=== PATIENT | male | born 1975 | race Caucasian/White ===

== ENCOUNTER 2017-04-11 13:59 | Emergency (ER) | payer OTHER ==
[2017-04-11] MEDS ORDERED: Ketorolac 30 MG/ML SDV IVPUSH ONE (14:28)
[2017-04-11] MEDS ORDERED: diphenhydrAMINE 50 MG/ML SDV IVPUSH ONE (14:28)
[2017-04-11] MEDS ORDERED: Prochlorperazine 10 MG in Sodium Chloride 0.9% 50 ML IV ONE (14:28)
[2017-04-11] MEDS ORDERED: Sodium Chloride 0.9% 1,000 ML IV ONE (14:28)
--- NOTE | 2017-04-11 14:29 | EDM.PDOC ---
ED HPI GENERAL MEDICAL PROBLEM - General Chief Complaint: Headache Stated Complaint: MIGRAINE Time Seen by Provider: 04/11/17 14:15 Source of Information: Reports: Patient History Limitations: Reports: No Limitations - History of Present Illness INITIAL COMMENTS - FREE TEXT/NARRATIVE: The patient is a 41-year-old male with a chief complaint of headache. He has a history of migraine headaches. States that he woke up this morning with a typical migraine. Describes it is severe pain that wraps around his forehead. No provoking factor. He has photophobia. He's also had nausea and several episodes of vomiting. Usually his headaches get better after he vomits and goes to sleep but today the headache is been more persistent. It is otherwise very similar to his usual headaches. No fever or recent illness. Headache is currently severe. The patient took ibuprofen at around 6 AM, has not taken any other medications. No weakness or confusion. No abdominal pain. Headache Pain Score (Numeric/FACES): 7 - Related Data Allergies Allergy/AdvReac Type Severity Reaction Status Date / Time No Known Allergies Allergy Verified 04/11/17 14:10 Home Meds: Home Meds . [No Known Home Meds] 01/23/14 [History] Past Medical History - Past Health History Medical/Surgical History: Denies Medical/Surgical History Gastrointestinal History: Reports: GERD Neurological History: Reports: Migraines Social & Family History - Tobacco Use Smoking Status *Q: Never Smoker - Alcohol Use Days Per Week of Alcohol Use: 1 Number of Drinks Per Day: 2 Total Drinks Per Week: 2 - Recreational Drug Use Recreational Drug Use: No ED ROS GENERAL - Review of Systems Review Of Systems: See Below Constitutional: Denies: Fever HEENT: Denies: Vision Change Respiratory: Denies: Cough Cardiovascular: Reports: No Symptoms Endocrine: Reports: No Symptoms GI/Abdominal: Reports: Nausea, Vomiting. Denies: Abdominal Pain Neurological: Reports: Headache - Physical Exam Exam: See Below Exam Limited By: No Limitations General Appearance: Alert, Moderate Distress Ears: Normal External Exam Nose: Normal Inspection Throat/Mouth: Normal Inspection, Normal Voice, No Airway Compromise Head Exam: Atraumatic, Normocephalic Neck: Normal Inspection, Supple, Non-Tender, Full Range of Motion Respiratory/Chest: No Respiratory Distress, Lungs Clear, Normal Breath Sounds, Chest Non-Tender Cardiovascular: Normal Peripheral Pulses, Regular Rate, Rhythm, No Murmur GI/Abdominal: Soft, Non-Tender, No Distention. No: Rebound Neuro Exam (Abbreviated): Alert, Oriented, CN II-XII Intact, Normal Cognition, No Motor/Sensory Deficits Extremities: Normal Inspection Psychiatric: Normal Affect, Normal Mood Skin Exam: Warm, Dry, Intact, Normal Color Course - Vital Signs Last Recorded V/S: Last Vital Signs Temp 36.4 C 04/11/17 14:11 Pulse 84 04/11/17 14:11 Resp BP 131/92 H 04/11/17 14:11 Pulse Ox 98 04/11/17 14:11 - Orders/Labs/Meds Meds: Medications Discontinued Medications Generic Name Dose Route Start Last Admin Trade Name Freq PRN Reason Stop Dose Admin Diphenhydramine HCl 25 mg 04/11/17 14:28 04/11/17 14:40 Benadryl IVPUSH 04/11/17 14:29 25 mg ONETIME ONE Administration Sodium Chloride 1,000 mls @ 1,000 mls/hr 04/11/17 14:28 04/11/17 14:43 Normal Saline IV 04/11/17 15:27 1,000 mls/hr ONETIME ONE Administration Prochlorperazine Edisylate 10 52 mls @ 150 mls/hr 04/11/17 14:28 04/11/17 14: 45 mg/ Sodium Chloride IV 04/11/17 14:48 150 mls/hr ONETIME ONE Administration Ketorolac Tromethamine 30 mg 04/11/17 14:28 04/11/17 14:40 Toradol IVPUSH 04/11/17 14:29 30 mg ONETIME ONE Administration - Re-Assessments/Exams Free Text/Narrative Re-Assessment/Exam: 04/11/17 16:06 Feeling much better after compazine/benadryl/toradol, headache nearly resolved. Wants to go home. Discussed return precautions. Departure - Departure Time of Disposition: 16:07 Disposition: Home, Self-Care 01 Clinical Impression: Migraine Qualifiers: Migraine type: without aura Status migrainosus presence: without status migrainosus Intractability: not intractable Qualified Code(s): G43.009 - Migraine without aura, not intractable, without status migrainosus - Discharge Information Referrals: Perfecto Calabrese MD [Primary Care Provider] - Forms: ED Department Discharge Additional Instructions: 1. Follow up with your primary care physician as needed for further care 2. Return to the Emergency Department if you have any worsening or concerning symptoms, such as severe headache, vomiting without keeping liquids down, or any other concerning symptoms
== END 2017-04-11 16:24 | disposition home or self-care (01) ==
LOC: JD.ED 13:59
DX: G43.009 Migraine without aura, not intractable, without status migrainosus (principal)
CPT/HCPCS: 96361; 96365; 96375; 99283; J0780; J1200; J1885; J7040; J7050; 99284

== ENCOUNTER 2017-05-06 18:22 | Emergency (ER) | payer OTHER ==
[2017-05-06] MEDS ORDERED: HYDROmorphone 0.5 MG/0.5 ML Syringe IVPUSH ONE (20:48)
[2017-05-06] MEDS ORDERED: Sodium Chloride 0.9% 1,000 ML IV ONE (20:50)
--- NOTE | 2017-05-06 21:10 | EDM.PDOC ---
ED HPI GENERAL MEDICAL PROBLEM - General Chief Complaint: Genitourinary Problem Stated Complaint: GROIN PAIN Time Seen by Provider: 05/06/17 19:40 Source of Information: Reports: Patient History Limitations: Reports: No Limitations - History of Present Illness INITIAL COMMENTS - FREE TEXT/NARRATIVE: Patient is a 41-year-old male who presents to the ED complaining of right testicular/growin pain. Patient states last week the pain was on and off for about a week but has progressively gotten worse over the course of the last few days. Today the pain is constant worse with palpation and also movement of his right leg. There is tenderness noted to the right testicle, groin, and right inner thigh. No swelling, bruising, redness, recent trauma, or other known precipitating factors. States the pain is described as being sharp constant with at rest rated 3 out of 10. With movement or with palpation increases to 8 out of 10. He has not taken any anti-inflammatories. He has no pain with urination and denies any abnormal penile discharge. Denies any sensation of incomplete bladder emptying or increased frequency noted. No prostate issues in the past. He is sexually active in a monogamous relation with his . He denies ever having any sexual transmitted diseases. He has no past medical history and currently taking no medications. Denies any surgical history. Of note patient states he also felt warm today and had some episodes of sweating. He's had a few days of loose stools but denies it being diarrhea. There is no blood present. No nausea or vomiting. No abdominal pain. Right Groin Pain Score (Numeric/FACES): 5 - Related Data Allergies Allergy/AdvReac Type Severity Reaction Status Date / Time No Known Allergies Allergy Verified 05/10/17 10:06 Home Meds: Home Meds . [No Known Home Meds] 01/23/14 [History] Past Medical History - Past Health History Medical/Surgical History: Denies Medical/Surgical History Gastrointestinal History: Reports: GERD Neurological History: Reports: Migraines Social & Family History - Tobacco Use Smoking Status *Q: Never Smoker - Alcohol Use Days Per Week of Alcohol Use: 1 Number of Drinks Per Day: 2 Total Drinks Per Week: 2 - Recreational Drug Use Recreational Drug Use: No ED ROS GENERAL - Review of Systems Review Of Systems: ROS reveals no pertinent complaints other than HPI. ED EXAM, RENAL/ - Physical Exam Exam: See Below Exam Limited By: No Limitations General Appearance: Alert, WD/WN, Mild Distress Ears: Hearing Grossly Normal Nose: Normal Inspection Throat/Mouth: Normal Voice, No Airway Compromise Neck: Normal Inspection, Supple Respiratory/Chest: No Respiratory Distress, Lungs Clear, Normal Breath Sounds, No Accessory Muscle Use, Chest Non-Tender Cardiovascular: Normal Peripheral Pulses, Regular Rate, Rhythm GI/Abdominal: Normal Bowel Sounds, Soft, Non-Tender, No Organomegaly, No Distention (Male) Exam: No Hernia, Normal Inspection, Circumcised, Cremasteric Reflex, Scrotum Tenderness (R), Testicular Tenderness (R). No: Hernia, Inguinal Lymphadenopathy, Penile Lesions, Rash, Scrotal Swelling, Scrotum Tenderness (L) , Testicular Mass, Urethral Discharge Rectal (Males) Exam: Deferred Back Exam: Normal Inspection. No: CVA Tenderness (L), CVA Tenderness (R) Extremities: Normal Inspection Neurological: Alert, Oriented, CN II-XII Intact, Normal Cognition, No Motor/ Sensory Deficits Psychiatric: Normal Affect, Normal Mood Skin Exam: Warm, Dry, Intact, Normal Color Course - Vital Signs Last Recorded V/S: Last Vital Signs Temp 97.2 F 05/06/17 19:04 Pulse 93 05/06/17 19:04 Resp BP 131/107 H 05/06/17 19:04 Pulse Ox 98 05/06/17 19:04 - Orders/Labs/Meds Labs: Laboratory Tests 05/06/17 05/06/17 05/06/17 Range/Units 21:44 21:44 22:05 WBC 9.45 H (4.23-9.07) K/mm3 RBC 5.35 (4.63-6.08) M/mm3 Hgb 15.4 (13.7-17.5) gm/L Hct 43.8 (40.1-51.0) % MCV 81.9 (79.0-92.2) fl MCH 28.8 (25.7-32.2) pg MCHC 35.2 (32.2-35.5) g/dl RDW Std Deviation 38.8 (35.1-43.9) fL Plt Count 189 (163-337) K/mm3 MPV 10.4 (9.4-12.3) fl Neut % (Auto) 61.9 (34.0-67.9) % Lymph % (Auto) 27.3 (21.8-53.1) % [place] % (Auto) 9.7 (5.3-12.2) % Eos % (Auto) 0.6 L (0.8-7.0) Baso % (Auto) 0.3 (0.1-1.2) % Neut # (Auto) 5.84 H (1.78-5.38) K/mm3 Lymph # (Auto) 2.58 (1.32-3.57) K/mm3 [place] # (Auto) 0.92 H (0.30-0.82) K/mm3 Eos # (Auto) 0.06 (0.04-0.54) K/mm3 Baso # (Auto) 0.03 (0.01-0.08) K/mm3 Sodium 140 (136-145) mEq/L Potassium 3.8 (3.5-5.1) mEq/L Chloride 104 (98-107) mEq/L Carbon Dioxide 24 (21-32) mEq/L Anion Gap 15.8 H (5-15) BUN 12 (7-18) mg/dL Creatinine 0.8 (0.7-1.3) mg/dL Est Cr Clr Drug Dosing 125.47 mL/min Estimated GFR (MDRD) > 60 (>60) mL/min BUN/Creatinine Ratio 15.0 (14-18) Glucose 100 (74-106) mg/dL Calcium 9.2 (8.5-10.1) mg/dL Total Bilirubin 0.6 (0.2-1.0) mg/dL AST 25 (15-37) U/L ALT 50 (16-63) U/L Alkaline Phosphatase 42 L (46-116) U/L C-Reactive Protein < 0.2 (<1.0) mg/dL Total Protein 7.4 (6.4-8.2) g/dl Albumin 4.0 (3.4-5.0) g/dl Globulin 3.4 gm/dL Albumin/Globulin Ratio 1.2 (1-2) Urine Color Yellow (Yellow) Urine Appearance Clear (Clear) Urine pH 7.0 (5.0-8.0) Ur Specific [place] 1.015 (1.005-1.030) Urine Protein Negative (Negative) Urine Glucose (UA) Negative (Negative) Urine Ketones Trace H (Negative) Urine Occult Blood Negative (Negative) Urine Nitrite Negative (Negative) Urine Bilirubin Negative (Negative) Urine Urobilinogen 0.2 (0.2-1.0) Ur Leukocyte Esterase Negative (Negative) Urine RBC 0-5 (0-5) /hpf Urine WBC 0-5 (0-5) /hpf Ur Epithelial Cells 0-5 (0-5) /hpf Urine Bacteria Rare (FEW) /hpf Urine Mucus Not seen (FEW) /hpf Meds: Medications Discontinued Medications Generic Name Dose Route Start Last Admin Trade Name Freq PRN Reason Stop Dose Admin Hydromorphone HCl 0.5 mg 05/06/17 20:48 05/07/17 00:25 Dilaudid IVPUSH 05/06/17 20:49 Not Given ONETIME ONE Sodium Chloride 1,000 mls @ 999 mls/hr 05/06/17 20:50 05/06/17 21:43 Normal Saline IV 05/06/17 21:50 999 mls/hr ONETIME ONE Administration Iopamidol 125 ml 05/06/17 23:06 05/06/17 23:39 Isovue-300 (61%) IVPUSH 05/06/17 23:07 125 ml ONETIME ONE Administration Ketorolac Tromethamine 30 mg 05/06/17 22:51 05/06/17 23:14 Toradol IVPUSH 05/06/17 22:52 30 mg ONETIME ONE Administration Sodium Chloride 10 ml 05/06/17 20:48 05/06/17 23:39 Saline Flush FLUSH 10 ml ASDIRECTED PRN Administration Keep Vein Open - Re-Assessments/Exams Free Text/Narrative Re-Assessment/Exam: Delay in evaluating patient with arranging hospital admission and transportation for multiple patients. Due to pain to the testicle ordered ultrasound. US scrotum obtained. Impression: No intra-testicular mass. No evidence of torsion. No evidence of orchitis. Likely complex bilateral hydroceles. Blood work along with UA obtained. IV established with dilaudid 0.5mg IVP and NS 999 mls/hr. 05/06/17 22:54 Reviewed labs with patient. Reassessed inguinal region. Few lymph nodes present. Discussed in great deal anatomy of the inguinal region and the different types of hernias. Offered to obtain CT of the abdomen and pelvis to the which the patient has elected to have obtained this evening. CT of the abdomen and pelvis with oral and IV contrast ordered. For pain ordered toradol 30 mg IVP. 05/07/17 00:23 CT abdomen and pelvis with IV contrast impression: Circumferential mucosal thickening of the bladder, although this may be related to under distention correlate with any symptoms of cystitis. Normal appendix. Areas of decreased attenuation in the right hepatic lobe, findings likely consistent with hemangiomas. However this could be confirmed with dedicated hepatic imaging at the discretion of on-site radiologist. Enhancing 1 cm lesion in the spleen, likely represents a hemangioma. Will discharge patient home with instructions as documented. Departure - Departure Time of Disposition: 00:25 Disposition: Home, Self-Care 01 Condition: Good Clinical Impression: Rt inguinal pain, Testicular pain, right, Hydrocele in adult - Discharge Information Instructions: Hydrocele, Adult Referrals: Perfecto Calabrese MD [Primary Care Provider] - Forms: ED Department Discharge Additional Instructions: As discussed unclear etiology of current complaints. Most likely musculoskeletal in nature with no significant findings on CT study of abdomen and pelvis. Thus treatment will be refraining from any activities that cause worsening pain. Can take Tylenol 650 mg every 6 hours and ibuprofen 600 mg every 6 hours as needed in alternating fashion for pain. Follow-up with your PCP for further evaluation and discuss further testing to determine if hemangioma is present to the liver and or spleen. Return to ED for any new or worsening symptoms.
[2017-05-06] MEDS: Sodium Chloride 0.9% 10 ML Syringe FLUSH PRN ×2 (21:43→23:39)
[2017-05-06] MEDS ORDERED: Ketorolac 30 MG/ML SDV IVPUSH ONE (22:51)
[2017-05-06] MEDS ORDERED: Iopamidol 612 MG/ML 150 ML Bottle IVPUSH ONE (23:06)
--- NOTE | 2017-05-07 07:18 | US ---
Testicular ultrasound: Multiple real-time images of the testicles were obtained. Testicles have a homogeneous ultrasound appearance. Arterial and venous blood flow is seen within both testicles. Small left epididymal cyst is seen measuring 8 mm. Small amount of fluid is seen around both testicles/epididymis. Measurements: Right testicle: 4.4 x 2.6 x 2.8 cm Left testicle: 4.1 x 1.9 x 3.2 cm Impression: 1. Incidental findings as noted above. Diagnostic code #2 I agree with preliminary report issued by [facility] ([facility] preliminary report dictated on 05/06/17, 10:01 PM Central Time)
--- NOTE | 2017-05-07 08:12 | CT ---
CT abdomen and pelvis Technique: Multiple axial sections were obtained from slightly below the dome of the diaphragm inferiorly through the pubic symphysis. Intravenous contrast was utilized. No oral contrast has been given. Delayed images were also obtained through the abdomen and pelvis. Comparison: No prior abdominal imaging. Findings: Small portion of the visualized lung bases shows nothing acute. Three low density lesions are identified within the right lobe of the liver. Largest abnormality measures approximately 5.1 cm in size. No additional abnormality is definitely appreciated within the liver. Spleen size is normal. Spleen shows a small hyperenhancing lesion measuring 1.2 cm which is felt to be incidental. Adrenal glands show no nodule. Pancreas appears within normal limits. Kidneys show symmetric contrast enhancement. Delayed images show no filling defects within the opacified collecting systems of the kidneys. Ureters are seen which appear within normal limits. Contrast noted within the bladder. Bladder wall appears slightly thickened most likely representing lack of distention. Aorta shows no aneurysmal dilatation. Gallbladder contains no calcified gallstones. No retroperitoneal adenopathy or mesenteric abnormalities are seen. No pelvic mass or adenopathy is identified. Appendix is seen which is normal. Bone window settings were reviewed which appear within normal limits for the patient's age with minimal scattered degenerative change and incidental Schmorl's node deformities. Impression: 1. Bladder wall thickening most likely relating to lack of bladder distention. 2. Three low-density lesions within the liver. These could possibly represent hemangiomas although other etiology is difficult to exclude at this time. Recommend nuclear medicine RBC SPECT study to rule in or rule out hemangiomas. 3. Small spleen abnormality believed to be incidental. No additional abnormality is seen. Diagnostic code #9 I agree with preliminary report issued by [facility] ([facility] preliminary report dictated on 05/07/17, 1:19 AM Central Time)
== END 2017-05-07 00:41 | disposition home or self-care (01) ==
LOC: JD.ED 18:22
DX: N43.3 Hydrocele, unspecified (principal)
CPT/HCPCS: 36415; 74177; 76870; 80053; 81001; 85025; 86140; 93975; 96361; 96374; 99284; J1885; J7040; J7050; Q9967

== ENCOUNTER 2017-05-10 09:18 | Day surgery (SDC) | payer OTHER ==
[~2017-05-10 09:18] MED LIST: Lidocaine 1% 4 ML ONE; Lidocaine 1%/Sod Bicarbonate in NS 8.4% 1 ML Syringe IV PRN; Midazolam 1 MG/ML 2 ML SDV ONE; Ondansetron 4 MG/2 ML SDV ONE; Propofol 200 MG/20 ML SDV ONE; Sodium Chloride 0.9% 10 ML Syringe FLUSH PRN; fentaNYL 250 MCG/5 ML SDV ONE
[2017-05-10] MEDS: Lactated Ringers 1,000 ML IV SCH ×2 (09:45→12:30)
--- NOTE | 2017-05-10 09:46 | PCM.PREANE ---
Preanesthetic Assessment - Anesthesia/Transfusion/Family Hx Anesthesia History: No Prior Anesthesia Family History of Anesthesia Reaction: No Transfusion History: No Prior Transfusion(s) - Review of Systems General: No Symptoms Pulmonary: No Symptoms Cardiovascular: No Symptoms Gastrointestinal: No Symptoms Neurological: No Symptoms Other: Reports: Easy Bleeding - Physical Assessment NPO Status Date: 05/09/17 NPO Status Time: 00:00 Pulse: 80 O2 Sat by Pulse Oximetry: 98 Respiratory Rate: 18 Blood Pressure: 136/94 Temperature: 36.6 C Height: 1.75 m Weight: 98.021 kg ASA Class: 2 Mental Status: Alert & Oriented x3 Dentition: Reports: Normal Dentition, Missing Tooth/Teeth (top right) Thyro-Mental Finger Breadths: 2 Mouth Opening Finger Breadths: 2 ROM/Head Extension: Full Lungs: Clear to Auscultation, Normal Respiratory Effort Cardiovascular: Regular Rate, Regular Rhythm, No Murmurs - Allergies Allergies/Adverse Reactions: Allergies Allergy/AdvReac Type Severity Reaction Status Date / Time No Known Allergies Allergy Verified 05/07/17 12:39 - Blood Blood Available: No Product(s) Available: None - Anesthesia Plan Pre-Op Medication Ordered: None - Acknowledgements Anesthesia Type Planned: General Anesthesia Pt an Appropriate Candidate for the Planned Anesthesia: Yes Alternatives and Risks of Anesthesia Discussed w Pt/Guardian: Yes Pt/Guardian Understands and Agrees with Anesthesia Plan: Yes PreAnesthesia Questionnaire - Past Health History Medical/Surgical History: Denies Medical/Surgical History HEENT History: Reports: Other (See Below) Other HEENT History: Pharyngitis Cardiovascular History: Reports: None Respiratory History: Reports: None Gastrointestinal History: Reports: GERD Genitourinary History: Reports: None Musculoskeletal History: Reports: None Neurological History: Reports: Migraines Psychiatric History: Reports: None Endocrine/Metabolic History: Reports: None Hematologic History: Reports: None Immunologic History: Reports: None Oncologic (Cancer) History: Reports: None Dermatologic History: Reports: None - Infectious Disease History Infectious Disease History: Reports: None - Past Surgical History Head Surgeries/Procedures: Reports: None HEENT Surgical History: Reports: None Cardiovascular Surgical History: Reports: None Respiratory Surgical History: Reports: None GI Surgical History: Reports: None Male Surgical History: Reports: None Endocrine Surgical History: Reports: None Neurological Surgical History: Reports: None Musculoskeletal Surgical History: Reports: None Oncologic Surgical History: Reports: None Dermatological Surgical History: Reports: None - SUBSTANCE USE Smoking Status *Q: Never Smoker Tobacco Use Within Last Twelve Months: Cigars Second Hand Smoke Exposure: No Days Per Week of Alcohol Use: 1 Number of Drinks Per Day: 2 Total Drinks Per Week: 2 Recreational Drug Use History: No - HOME MEDS Home Medications: Home Meds . [No Known Home Meds] 01/23/14 [History] - CURRENT (IN HOUSE) MEDS Current Meds: Current Medications Lactated Ringer's (Ringers, Lactated) 1,000 mls @ 125 mls/hr IV ASDIRECTED CONCHIS Stop: 05/10/17 23:00 Lidocaine/Sodium Bicarbonate (Buffered Lidocaine 1% In Ns 8.4%) 0.25 ml IV ONETIME PRN PRN Reason: Prior to IV Start Stop: 05/10/17 18:00 Sodium Chloride (Saline Flush) 10 ml FLUSH ASDIRECTED PRN PRN Reason: Keep Vein Open Stop: 05/10/17 18:00 Discontinued Medications Fentanyl (Sublimaze) Confirm Administered Dose 250 mcg .ROUTE .STK-MED ONE Stop: 05/10/17 07:53 Lidocaine HCl (Xylocaine-Mpf 1%) Confirm Administered Dose 4 mls @ as directed .ROUTE .STK-MED ONE Stop: 05/10/17 07:53 Midazolam HCl (Versed 1 Mg/Ml) Confirm Administered Dose 2 mg .ROUTE .STK-MED ONE Stop: 05/10/17 07:53 Ondansetron HCl (Zofran) Confirm Administered Dose 4 mg .ROUTE .STK-MED ONE Stop: 05/10/17 07:52 Propofol (Diprivan 20 Ml) Confirm Administered Dose 200 mg .ROUTE .STK-MED ONE Stop: 05/10/17 07:53
[2017-05-10] MEDS ORDERED: Lidocaine 1% with EPINEPHrine 1:100,000 20 ML MDV ONE (09:54)
[2017-05-10] MEDS ORDERED: Bupivacaine 0.5%/EPINEPHrine 1:200,000 50 ML MDV ONE (09:54)
[2017-05-10] MEDS ORDERED: HYDROmorphone 1 MG/ML Syringe ONE (10:42)
[2017-05-10] MEDS ORDERED: Lactated Ringers 1,000 ML ONE (10:58)
[2017-05-10] MEDS ORDERED: fentaNYL 100 MCG/2 ML SDV IVPUSH PRN (11:42)
[2017-05-10] MEDS ORDERED: Ketorolac 30 MG/ML SDV IVPUSH PRN (11:42)
--- NOTE | 2017-05-10 11:44 | PCM.POSTAN ---
POST ANESTHESIA ASSESSMENT - MENTAL STATUS Mental Status: Somnolent - VITAL SIGNS Pulse Rate: 95 SaO2: 95 Resp Rate: 10 Blood Pressure: 122/62 Temperature: 37.1 C - RESPIRATORY Respiratory Status: Respiratory Rate WNL, Airway Patent, O2 Saturation Stable, Supplemental Oxygen - CARDIOVASCULAR CV Status: Pulse Rate WNL, Blood Pressure Stable - GASTROINTESTINAL GI Status: No Symptoms - PAIN Pain Score: 0 - POST OP HYDRATION Hydration Status: Adequate & Stable - OBSERVATIONS Free Text/Narrative:: no anesthesia complications noted
--- NOTE | 2017-05-10 11:52 | PCM.OPNOTE ---
- General Post-Op/Procedure Note Date of Surgery/Procedure: 05/10/17 Operative Procedure(s): Open right femoral hernia repair with mesh plug Findings: Small femoral hernia containing preperitoneal fat Pre Op Diagnosis: Symptomatic right femoral hernia Post-Op Diagnosis: Same Anesthesia Technique: General LMA, Local Primary Surgeon: Ramsey Krause Pathology: None EBL in mLs: 5 Complications: None Condition: Good Free Text/Narrative:: After adequate general anesthesia was obtained the patient's right groin was prepped and draped sterilely for the procedure. An infrainguinal incision was made in the skin with a 15 blade and deepened to the fascia of the external oblique. I dissected out the area above and medial to the femoral canal and there were some adhesions and a small amount of herniated fat in the canal. The spermatic cord appeared enlarged to me. I opened up the fascia of the external oblique in the direction of its fibers. I mobilized the spermatic cord and controlled with a Estfeania drain then explored the spermatic cord for an indirect hernia there was none. There was no cord lipoma. The floor of the inguinal canal was intact with no direct hernia. I opened up the transversalis fascia and retracted the preperitoneal fat in a cephalad direction to look for a femoral herniation and I didn't see one. I used my left index finger and inserted it through the femoral canal to connect with my right index finger from below. I then inserted a plug into the canal from below. The plug was then secured to the shelving edge of inguinal ligament, the lacunar ligament and the pectineus fascia. I closed the transversalis fascia with interrupted 0 Ethibond. The cord was placed back in the canal and I closed it with a running Vicryl. Grayson's was closed with Vicryl and the skin was closed with Vicryl as well. Steri-Strips and gauze used for the dressing. There were no consultations.
== END 2017-05-10 14:03 | disposition home or self-care (01) ==
LOC: JD.SDS 09:18
PROVIDERS: ATTEND Surgery
DX: K41.90 Unilateral femoral hernia, without obstruction or gangrene, not specified as recurrent (principal); K21.9 Gastro-esophageal reflux disease without esophagitis; G43.909 Migraine, unspecified, not intractable, without status migrainosus
CPT/HCPCS: 49550; J1170; J1885; J2250; J2405; J3010; J7120; 00840; C1781; J2704

== ENCOUNTER 2024-09-01 08:32 | Emergency (ER) | payer BC ==
[2024-09-01] MEDS: Sodium Chloride 0.9% 1,000 ML IV ONE (08:58)
[2024-09-01] MEDS: Sodium Chloride 0.9% 1,000 ML ONE (09:15)
[2024-09-01 09:23] LABS: BASOPHILS ABSOLUTE AUTO 0.1 K/mm3 (0.0-0.2); EOSINOPHILS ABSOLUTE AUTO 0.1 K/mm3 (0.0-0.4); EOSINOPHILS PERCENT AUTO 2.8 % (0.0-6.0); HEMATOCRIT 44.7 % (42.0-52.0); HEMOGLOBIN 15.2 gm/dl (14.0-18.0); IMMATURE GRAN ABSOLUTE AUTO 0.01 K/mm3 (0.00-0.05); IMMATURE GRAN PERCENT AUTO 0.2 % (0.0-0.4); LYMPHOCYTES ABSOLUTE AUTO 1.8 K/mm3 (1.0-4.8); LYMPHOCYTES PERCENT AUTO 36.7 % (24.0-44.0); MEAN CORPUSCULAR HEMOGLOBIN 28.3 pg (28.0-32.0); MEAN CORPUSCULAR VOLUME 83.2 fl (83.0-99.0); MEAN PLATELET VOLUME 10.2 fl (9.4-12.4); MONOCYTES ABSOLUTE AUTO 0.4 K/mm3 (0.0-0.8); MONOCYTES PERCENT AUTO 8.8 % (0.0-8.0); NEUTROPHILS ABSOLUTE AUTO 2.5 K/mm3 (1.8-7.7); NEUTROPHILS PERCENT AUTO 50.5 % (41.0-71.0); PLATELET COUNT,PLT 196 K/mm3 (150-400); RED BLOOD CELL COUNT 5.37 M/mm3 (4.52-5.90); WHITE BLOOD CELL COUNT,WBC 5.02 K/mm3 (3.9-11.3)
[2024-09-01 09:29] LABS: A/G RATIO 1.1 (1-2); ALBUMIN 3.6 g/dl (3.4-5.0); BILIRUBIN TOTAL 0.5 mg/dL (0.2-1.0); BUN/CREATININE RATIO 13.3 (14-18); CALCIUM 8.6 mg/dL (8.5-10.1); CREATININE 0.9 mg/dL (0.7-1.3); EST CRCL DRUG DOSING (CG) 102.52 mL/min
[2024-09-01] MEDS ORDERED: Sodium Chloride 0.9% 10 ML Syringe FLUSH PRN (09:33)
[2024-09-01 09:54] LABS: MAGNESIUM 1.9 mg/dL (1.8-2.4)
[2024-09-01 10:03] LABS: TROPONIN I HIGH SENSITIVITY < 4 pg/mL (<=76)
[2024-09-01 10:04] LABS: APPEARANCE,URINE CLEAR (Clear); BILIRUBIN,URINE NEGATIVE (Negative); COLOR,URINE YELLOW (Yellow); GLUCOSE,URINE NEGATIVE (Negative); KETONES,URINE NEGATIVE (Negative); LEUKOCYTE ESTERASE,URINE NEGATIVE (Negative); NITRITE,URINE NEGATIVE (Negative); OCCULT BLOOD,URINE NEGATIVE (Negative); PH,URINE 6.5 (5.0-8.0); PROTEIN,URINE TRACE (Negative); UROBILINOGEN,URINE 0.2 (0.2-1.0)
[2024-09-01 10:41] LABS: BACTERIA,URINE RARE /hpf (FEW); EPITHELIAL CELLS,URINE 0-5 /hpf (0-5); RBC,URINE 0-5 /hpf (0-5); WBC,URINE 0-5 /hpf (0-5)
[2024-09-01 10:42] LABS: MUCUS,URINE MODERATE /hpf (FEW)
[2024-09-01 13:45] VITALS: BP 125/93; PULSE 80
== END 2024-09-01 13:38 | disposition home or self-care (01) ==
LOC: JD.ED 08:32
DX: R55 Syncope and collapse (principal); F17.290 Nicotine dependence, other tobacco product, uncomplicated; Z79.899 Other long term (current) drug therapy
CPT/HCPCS: 36415; 71045; 71045-26; 80053; 81001; 82947; 83735; 84484; 85025; 96360; 96361; 99284-25; J7030